=== PATIENT | male | born 1960 | race Caucasian/White ===

== ENCOUNTER 2023-03-20 06:12 | Day surgery (SDC) | payer OTHER ==
[~2023-03-20] VITALS: Ht 167.6 cm; Wt 68.2 kg
[2023-03-20] MEDS ORDERED: LIDOCAINE/PF 2% 5 ML SYRINGE IVP ONE (06:13)
[2023-03-20] MEDS ORDERED: PROPOFOL 1% 20 ML VIAL IVP ONE (06:13)
[2023-03-20] MEDS ORDERED: SODIUM CHLORIDE 0.9% 1,000 ML ONE (06:28)
[2023-03-20] MEDS ORDERED: TAMS-13 PO (07:07)
[2023-03-20] MEDS ORDERED: TICA90TA PO (07:07)
[2023-03-20] MEDS ORDERED: CARV3 PO (07:07)
[2023-03-20] MEDS ORDERED: SPIR-37 PO (07:07)
[2023-03-20] MEDS ORDERED: OMEP20 PO (07:07)
[2023-03-20] MEDS ORDERED: ATOR40TA28 PO (07:07)
[2023-03-20 07:36] LABS: GLUCOMETER DEV NAME(LOC) SDS.
[2023-03-20] MEDS ORDERED: SODIUM CHLORIDE 0.9% 1,000 ML IV ONE (08:30)
[2023-03-20] MEDS ORDERED: OXYGEN THERAPY IH SCH (09:45)
== END 2023-03-20 10:50 | disposition home or self-care (01) ==
LOC: SURGERY 06:12
PROVIDERS: ATTEND Specialist
DX: K63.5 Polyp of colon (principal); I25.10 Atherosclerotic heart disease of native coronary artery without angina pectoris; I50.9 Heart failure, unspecified; E11.9 Type 2 diabetes mellitus without complications; Z98.890 Other specified postprocedural states; Z79.899 Other long term (current) drug therapy; Z87.01 Personal history of pneumonia (recurrent)
CPT/HCPCS: 45385; 82962; 88305; 93005; C1769; J2704; J3490; J7030